=== PATIENT | female | born 1950 | race Caucasian/White ===

== ENCOUNTER → 2023-01-09 10:06 | Outpatient (BNVA) | payer BC, SELFPAY | PROVIDERS: PCP Internal Medicine; Visit Provider Psychiatry & Neurology Neurology ==

== ENCOUNTER 2023-05-30 07:41 | Outpatient (AMB) | payer BC, SELFPAY ==
--- NOTE | 2023-05-30 07:42 | MHC.OFFVIS ---
Intake Vital Signs 05/30/23 07:52 Weight 141 lb BP 140/102 H Blood Pressure Location Rt brachial Position Sitting Pulse 72 Pulse Source Pulse Oximeter Pulse Oximetry (%) 97 Oxygen Delivery Method Room Air Intake Visit Reasons: 3m follow up Lower extremity-confirmed Neurophaty Intake Note: F/U Neuropathy Repairer Handtools Required: No Allergies codeine Allergy (Severe, Verified 05/30/23 07:43) Diarrhea buspirone [From BuSpar] Allergy (Unknown, Verified 05/30/23 07:43) Diarrhea Medication List - Last Reconciled 05/30/23 by Christine Baron MD acetaminophen 500 mg PO Q6H PRN baclofen 5 mg PO BID NS clonazepam mg PO cyanocobalamin (vitamin B-12) 1,000 mcg PO DAILY docusate sodium 2 mg PO DAILY gabapentin 300 mg PO BID levothyroxine 50 mcg PO DAILY lorazepam 2 mg PO BID melatonin 5 mg PO BEDTIME omeprazole 20 mg PO DAILY quetiapine 200 mg PO DAILY sertraline 50 mg PO DAILY HPI HPI Comments History of Present Illness Details 72y/o right handed female with depression, anxiety, hypothyroidism , bipolar disorder comes for follow up of neuropathy. she is udner stress due to her sons cancer diagnosis. Her nerve pain is worse- wakes her up at night. Currently she says the pain is in her feet- pins and needles, shooting pain radiating up her leg. The pain is constant and at rest. moving around can help. she is under care of [facility] but now managed by her PCP. EMG- was c/w moderately severely sensory neuropathy C spine X ray - cervical spondylosis DJD Previous history-She started noticing numbness in her toes about 1 year ago, she noticed her veins in her foot seemed larger, then she started having pain that started in her foot and radiates upto her hips, trunk , spine and also pain in her hands , arms. The pain in her right hand affects her activities. she is very anxious during this visit, cries during the interview. she is concerned about redness in her hands and feet. she also reports feeling off balance . The pain is episodic - she is not able to describe more. the pain is worse at night and wakes her up from sleep.she also reports sharp pain in her feet whens he walks too much or when it is cold.she says she was fine until she retired 3 years ago.. she worked for [employer]. she has been under a care of her psychiatrist since she was 29.She has mood swings, can become irritable and angry, she cries a lot. she also has trouble falling and staying asleep - her psychiatrist is trying to help. she had an admission for suicidal attempt many years ago. she denies any suicidal thoughts now [facility] Medical History (Updated 05/30/23 @ 08:06 by Christine Baron MD) Cervical spondylosis Sensory neuropathy Pain Weakness Arthritis Leukopenia Constipation Hypothyroidism Insomnia Alcoholism HTN (hypertension) Bipolar 1 disorder Depression Anxiety Numbness and tingling of both feet Neck pain Surgical History History of intestinal surgery History of cholecystectomy H/O: hysterectomy Family History Father Heart disease Mother Heart disease Family/Other Cancer Family/Other Primary cystic renal cell carcinoma Social History Alcohol intake: never Patient Tobacco Use Status: Never used Tobacco Use of substances other than those prescribed or required for medical reasons: No Physical Exam Vital Signs: Last Vital Signs Pulse 72 05/30/23 07:52 BP 140/102 H 05/30/23 07:52 Pulse Ox 97 05/30/23 07:52 Oxygen Delivery Method Room Air 05/30/23 07:52 Const General: cooperative, healthy appearing, in distress and anxious Nutritional Appearance: average body habitus Orientation/consciousness: patient oriented x3 Eyes Pupils: Equal, round and reactive pupils present Neuro Other: severe neck tightness and tenderness pain in UE and lE neck on touch Limited motor exam due to poor effort related to pain General: patient oriented x3, tone normal and moves all extremities Cranial nerves: Yes Facial sensation intact/muscles of mastication intact, Yes Equal, round and reactive pupils present, Yes Bilaterally intact EOM present, Yes Nystagmus not present, Yes Normal facial strength present and Yes Midline tongue present Cognition (Neuro): normal cognition Gait exam (Neuro): Antalgic gait present Deep tendon reflexes (DTR's): Right triceps reflex intensity grade: 1+, Left triceps reflex intensity grade: 1+, Rt Biceps (C5, C6): 1+, Left biceps reflex intensity grade: 1+, Right brachioradialis reflex intensity grade: 1+, Left brachioradialis reflex intensity grade: 1+, Right patellar reflex intensity grade: 1+ and Left patellar reflex intensity grade: 1+ Coordination: [id number] test normal Psych Affect: Sad affect present Assessment & Plan Assessment & Plan (1) Sensory neuropathy: Code(s): G62.9 - Polyneuropathy, unspecified (2) Cervical spondylosis: Code(s): M47.812 - Spondylosis without myelopathy or radiculopathy, cervical region (3) Pain: Comment: multifactorial , neuropathy, musculoskeletal, restless legs Code(s): R52 - Pain, unspecified Plan Discussed EMG and C spine X ray report with patient She is very anxious today and needs a psychiatric follow up. Increase gabapentin 300mg qam [id number] and 600mg qhs Baclofen 5mg bid Pain management - declines declines ref to rheumatology lab reports from PCP Orders: Referrals Rheumatology Referral M19.90 - Unspecified osteoarthritis, unspecified site, M47.812 - Spondylosis without myelopathy or radiculopathy, cervical region, R52 - Pain, unspecified Medications: Changed From gabapentin 300 mg PO BID 60 caps 6RF To gabapentin 1 cap qam and q noon and 2 caps qhs orally; 120 caps 6RF Coding Level of Care Code Est Pt Level 4 (19912) Diagnoses Sensory neuropathy G62.9 Cervical spondylosis M47.812 Pain R52
[2023-05-30 07:52] VITALS: BP 140/102; PULSE 72; O2SAT 97
== END 2023-05-30 08:12 | disposition home or self-care (01) ==
PROVIDERS: Visit Provider Psychiatry & Neurology Neurology
DX: G62.9 Polyneuropathy, unspecified (principal); M47.812 Spondylosis without myelopathy or radiculopathy, cervical region; R52 Pain, unspecified
CPT/HCPCS: 99214

== ENCOUNTER → 2023-05-30 07:41 | Outpatient (BNVA) | payer BC, SELFPAY | PROVIDERS: Visit Provider Psychiatry & Neurology Neurology | DX: M54.2 Cervicalgia (principal); R20.0 Anesthesia of skin; R20.2 Paresthesia of skin ==

== ENCOUNTER 2023-12-19 14:19 | Outpatient (AMB) | payer BC, SELFPAY ==
--- NOTE | 2023-12-19 14:33 | A.OFFVIS_ITS ---
Intake Vital Signs 12/19/23 14:34 Height 5 ft 3 in Weight 140 lb BMI 24.8 BP 102/58 L Blood Pressure Location Rt brachial Position Sitting Respiration 16 Pulse 96 Pulse Source Pulse Oximeter Pulse Oximetry (%) 98 Oxygen Delivery Method Room Air Intake Visit Reasons: 4 mnts f/u appt - lvm Intake Note: Pt presents to the office for a 6 month follow up for neuropathy. 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 Allergies codeine Allergy (Severe, Verified 12/19/23 14:34) Diarrhea buspirone [From BuSpar] Allergy (Unknown, Verified 12/19/23 14:34) Diarrhea Medication List - Last Reconciled 12/19/23 by Christine Baron MD acetaminophen 500 mg PO Q6H PRN baclofen 5 mg PO BID NS clonazepam mg PO cyanocobalamin (vitamin B-12) 1,000 mcg PO DAILY docusate sodium 2 mg PO DAILY gabapentin 3 caps bid orally; levothyroxine 50 mcg PO DAILY lorazepam 2 mg PO BID melatonin 5 mg PO BEDTIME omeprazole 20 mg PO DAILY quetiapine 200 mg PO DAILY sertraline 50 mg PO DAILY HPI HPI Comments History of Present Illness Details 73y/o right handed female with depressio n, anxiety, hypothyroidism , bipolar disorder comes for follow up of neuropathy. she has appointment with [facility] on January 06.she is under investigation for an abdominal mass- seeing a surgeon at [place]. she is under stress due to her sons cancer diagnosis- but responded to treatment. she is on gabapentin 300mg -3 caps bid for her nerve pain . Currently she says the pain is in her feet- pins and needles, shooting pain radiating up her leg. The pain is intermittent. she is under care of [facility] but now managed by her PCP. EMG- was c/w moderately severely sensory neuropathy C spine X ray - cervical spondylosis DJD Previous history-She started noticing numbness in her toes about 1 year ago, she noticed her veins in her foot seemed larger, then she started having pain that started in her foot and radiates upto her hips, trunk , spine and also pain in her hands , arms. The pain in her right hand affects her activities. she is very anxious during this visit, cries during the interview. she is concerned about redness in her hands and feet. she also reports feeling off balance . The pain is episodic - she is not able to describe more. the pain is worse at night and wakes her up from sleep.she also reports sharp pain in her feet whens he walks too much or when it is cold.she says she was fine until she retired 3 years ago.. she worked for [employer]. she has been under a care of her psychiatrist since she was 29.She has mood swings, can become irritable and angry, she cries a lot. she also has trouble falling and staying asleep - her psychiatrist is trying to help. she had an admission for suicidal attempt many years ago. she denies any suicidal thoughts now [facility] Medical History Cervical spondylosis Sensory neuropathy Pain Weakness Arthritis Leukopenia Constipation Hypothyroidism Insomnia Alcoholism HTN (hypertension) Bipolar 1 disorder Depression Anxiety Numbness and tingling of both feet Neck pain Surgical History History of intestinal surgery History of cholecystectomy H/O: hysterectomy Family History Father Heart disease Mother Heart disease Family/Other Cancer Family/Other Primary cystic renal cell carcinoma Social History Alcohol intake: never Patient Tobacco Use Status: Never used Tobacco Physical Exam Vital Signs: Last Vital Signs Pulse 96 12/19/23 14:34 Resp 16 12/19/23 14:34 BP 102/58 L 12/19/23 14:34 Pulse Ox 98 12/19/23 14:34 Oxygen Delivery Method Room Air 12/19/23 14:34 BMI result Body Mass Index 24.8 Const General: cooperative, healthy appearing, in distress and anxious Nutritional Appearance: average body habitus Orientation/consciousness: patient oriented x3 Eyes Pupils: Equal, round and reactive pupils present Neuro Other: Mild neck tightness and tenderness in her paraspinal muscles General: patient oriented x3, tone normal and moves all extremities Cranial nerves: Yes Facial sensation intact/muscles of mastication intact, Yes Equal, round and reactive pupils present, Yes Bilaterally intact EOM present, Yes Nystagmus not present, Yes Normal facial strength present and Yes Midline tongue present Cognition (Neuro): normal cognition Gait exam (Neuro): Antalgic gait present Deep tendon reflexes (DTR's): Right triceps reflex intensity grade: 1+, Left triceps reflex intensity grade: 1+, Rt Biceps (C5, C6): 1+, Left biceps reflex intensity grade: 1+, Right brachioradialis reflex intensity grade: 1+, Left brachioradialis reflex intensity grade: 1+, Right patellar reflex intensity grade: 1+ and Left patellar reflex intensity grade: 1+ Coordination: [id number] test normal Psych Affect: Anxious affect present Assessment & Plan Assessment & Plan (1) Sensory neuropathy: Code(s): G62.9 - Polyneuropathy, unspecified (2) Cervical spondylosis: Code(s): M47.812 - Spondylosis without myelopathy or radiculopathy, cervical region (3) Pain: Comment: multifactorial , neuropathy, musculoskeletal, restless legs Code(s): R52 - Pain, unspecified Plan Discussed EMG and C spine X ray report with patient Gabapentin 600 mg bid Baclofen 5mg bid Pain management - declines F/u Rheumatology and PCP Coding Level of Care Code Est Pt Level 4 (02996) Diagnoses Sensory neuropathy G62.9 Cervical spondylosis M47.812 Pain R52
[2023-12-19 14:34] VITALS: BP 102/58; PULSE 96; RESP 16; O2SAT 98; BMI 24.8
== END 2023-12-19 15:03 | disposition home or self-care (01) ==
PROVIDERS: PCP Internal Medicine; Visit Provider Psychiatry & Neurology Neurology
DX: G62.9 Polyneuropathy, unspecified (principal); M47.812 Spondylosis without myelopathy or radiculopathy, cervical region; R52 Pain, unspecified
CPT/HCPCS: 99214

== ENCOUNTER → 2023-12-19 14:19 | Outpatient (BNVA) | payer BC, SELFPAY | PROVIDERS: PCP Internal Medicine; Visit Provider Psychiatry & Neurology Neurology ==